=== PATIENT | female | born 2000 | race Caucasian/White ===

== ENCOUNTER → 2022-09-26 | Outpatient (CLI) | payer BC ==
[~2022-09-26] MED LIST: ALBU90OI INH; AMOX50SU PO; CEPH250A PO; CODACEE120 PO; RXCODACESY PO; TYLENOL; [UNRECOGNIZED DRUG - OTHER]; [UNRECOGNIZED DRUG - REMARK]
== END | disposition home or self-care (01) ==
LOC: LAB SHORT 18:21 → LAB 18:21
DX: N39.0 Urinary tract infection, site not specified (principal)
CPT/HCPCS: 87077; 87086; 87186

== ENCOUNTER → 2022-09-29 | Outpatient (CLI) | payer BC | END | disposition home or self-care (01) | LOC: LAB 09:58 → LAB SHORT 09:58 | PROVIDERS: Advanced Practice Midwife | DX: Z01.419 Encounter for gynecological examination (general) (routine) without abnormal findings (principal) | CPT/HCPCS: G0145 ==

== ENCOUNTER → 2023-01-17 | Outpatient (CLI) | payer OTHER ==
[2023-01-19 01:09] LABS: CHLAMYDIA TRACHOMATIS, NAA Negative (Negative)
== END | disposition home or self-care (01) ==
LOC: LAB 09:56 → LAB SHORT 09:56
PROVIDERS: Obstetrics & Gynecology
DX: Z11.3 Encounter for screening for infections with a predominantly sexual mode of transmission (principal)
CPT/HCPCS: 87491; 87591

== ENCOUNTER 2023-05-08 06:38 | Emergency (ER) | payer OTHER ==
[~2023-05-08] VITALS: Ht 154.9 cm; Wt 81.7 kg
[2023-05-08] MEDS ORDERED: IBUP600 PO ×2 (07:13→08:11)
[2023-05-08] MEDS ORDERED: Amoxicillin500 MG PO (07:14)
[2023-05-08] MEDS ORDERED: ESCI20 PO (07:14)
[2023-05-08] MEDS ORDERED: ACET500 PO (07:15)
[2023-05-08 08:00] VITALS: BP 107/69
== END 2023-05-08 08:17 | disposition home or self-care (01) ==
LOC: ER 06:38
DX: J02.9 Acute pharyngitis, unspecified (principal); Z79.899 Other long term (current) drug therapy
CPT/HCPCS: 96372; 99282-25; J1100; J1885; J7030

== ENCOUNTER 2025-02-22 18:13 | Emergency (ER) | payer OTHER ==
[~2025-02-22] VITALS: Ht 160 cm; Wt 81.7 kg
[~2025-02-22 18:13] MED LIST changes: +ACET500 PO; +Amoxicillin500 MG PO; +ESCI20 PO; +Hydroxyzine HCl25 MG PO; +IBUP600 PO
[2025-02-22 18:17] VITALS: BP 133/93
[2025-02-22] MEDS ORDERED: BUSPIRONE HCL5 M6 PO (18:20)
[2025-02-22] MEDS ORDERED: PROZAC2010 PO (18:21)
[2025-02-22] MEDS ORDERED: LORazepam 1 MG Tab PO ONE (18:55)
[2025-02-22] MEDS ORDERED: Ondansetron 4 MG SoluTab SL ONE (19:15)
[2025-02-22] MEDS ORDERED: LORazepam 2 MG/ML 1ML Injection IM ONE (19:15)
[2025-02-22] MEDS ORDERED: HYDHCL25 PO (19:21)
== END 2025-02-22 19:34 | disposition home or self-care (01) ==
LOC: ER 18:13
DX: F41.9 Anxiety disorder, unspecified (principal); Z79.51 Long term (current) use of inhaled steroids; Z79.899 Other long term (current) drug therapy
CPT/HCPCS: 96372; 99282-25; A9270; J2060